=== PATIENT | male | born 1945 ===

== ENCOUNTER 2018-08-28 14:52 | Outpatient (CLI) | payer OTHER ==
[~2018-08-28] VITALS: Ht 170.2 cm; Wt 73.5 kg
== END 2018-08-28 15:00 | disposition home or self-care (01) ==
LOC: OFIC 805 14:52
DX: J34.0 Abscess, furuncle and carbuncle of nose (principal); J34.89 Other specified disorders of nose and nasal sinuses

== ENCOUNTER 2018-09-11 12:44 | Outpatient (CLI) | payer OTHER | END 2018-09-11 13:00 | disposition home or self-care (01) | LOC: OFIC 805 12:44 | DX: J34.89 Other specified disorders of nose and nasal sinuses (principal) ==

== ENCOUNTER 2018-10-12 09:48 | Outpatient (CLI) | payer OTHER ==
[~2018-10-12] VITALS: Ht 152.4 cm; Wt 73.5 kg
== END 2018-10-12 10:10 | disposition home or self-care (01) ==
LOC: OFIC 805 09:48
DX: J34.89 Other specified disorders of nose and nasal sinuses (principal)